=== PATIENT | male | born 1990 | race American Indian/Alaskan Native ===

== ENCOUNTER 2017-03-28 13:27 | Emergency (ER) | payer SELFPAY ==
[2017-03-28 13:32] VITALS: BP 111/67
== END 2017-03-28 17:50 | disposition home or self-care (01) ==
LOC: ED 13:27
DX: K08.89 Other specified disorders of teeth and supporting structures (principal); Z53.21 Procedure and treatment not carried out due to patient leaving prior to being seen by health care provider

== ENCOUNTER 2017-09-08 14:25 | Emergency (ER) | payer SELFPAY ==
[2017-09-08 14:33] VITALS: BP 118/76
[2017-09-08 14:50] LABS: Bilirubin,Urine NEG (Negative); Blood,Urine NEG (Negative); Color,Urine Yellow (Yellow); Mucus,Urine 1+ /HPF; Protein,Urine <15 mg/dL mg/dL (Negative); Urobilinogen,Urine < 2.0 mg/dL (<2.0)
[2017-09-08 14:58] LABS: Amphetamine Screen,Urine PRESUMPTIVE NEGATIVE; Benzodiazepines Screen,Urine PRESUMPTIVE NEGATIVE; Cocaine Screen,Urine PRESUMPTIVE NEGATIVE; Methadone Screen,Urine PRESUMPTIVE NEGATIVE; Opiate Screen,Urine PRESUMPTIVE NEGATIVE
[2017-09-08 15:05] LABS: Basophils % (Auto) 0.6 % (0.0-1.8); Eosinophils # (Auto) 0.3 K/mm3 (0.0-0.4); Eosinophils % (Auto) 8.8 % (0.0-4.3); Hematocrit 42.4 % (35.5-45.6); Hemoglobin 14.1 gm/dl (11.8-15.2); Lymphocytes # (Auto) 1.4 K/mm3 (1.2-5.4); Lymphocytes % (Auto) 36.3 % (13.4-35.0); Mean Corpuscular HGB Conc 33 % (32-34); Mean Corpuscular Hemoglobin 28 pg (28-32); Mean Corpuscular Volume 83 fl (84-94); Monocytes # (Auto) 0.3 K/mm3 (0.0-0.8); Monocytes % (Auto) 6.9 % (0.0-7.3); Platelet Count 203 K/mm3 (140-440); Red Cell Distribution Width 14.3 % (13.2-15.2)
[2017-09-08 15:20] LABS: Cannabinoid Screen,Urine PRESUMPTIVE POSITIVE
[2017-09-08 15:21] LABS: BUN/Creatinine Ratio 16; Blood Urea Nitrogen 16 mg/dL (9-20); Calcium 9.9 mg/dL (8.4-10.2); Hemolysis Index 4
--- NOTE | 2017-09-08 16:46 | Emergency Department Report ---
HPI - General Chief Complaint: Psych Time Seen by Provider: 09/08/17 16:14 - HPI HPI: 27-year-old male presents to the emergency department with complaint of some depression and anxiety that he says has been going on for about one year but appears somewhat worsened recently. The patient did lose his job about one week ago but says that the symptoms were going on prior to that. The patient has difficulty sleeping at night and says that his mind is always racing. He denies any visual or auditory hallucinations. He denies any suicidal or homicidal ideations. He denies any diagnosed medical or psychiatric conditions. Occasionally he will smoke marijuana but otherwise denies any other illicit drugs. He has not taken anything for his symptoms prior to presentation. ED Past Medical Hx - Past Medical History Previous Medical History?: No - Surgical History Past Surgical History?: No - Social History Smoking Status: Never Smoker Substance Use Type: Marijuana ED Review of Systems ROS: Stated complaint: SUICIDAL Other details as noted in HPI Comment: All other systems reviewed and negative Constitutional: denies: chills, fever Eyes: denies: eye pain, eye discharge, vision change ENT: denies: ear pain, throat pain Respiratory: denies: cough, shortness of breath, wheezing Cardiovascular: denies: chest pain, palpitations Gastrointestinal: denies: abdominal pain, nausea, diarrhea Genitourinary: denies: urgency, dysuria Musculoskeletal: denies: back pain, joint swelling, arthralgia Skin: denies: rash, lesions Neurological: denies: headache, weakness, paresthesias Psychiatric: anxiety, depression. denies: auditory hallucinations, visual hallucinations, homicidal thoughts, suicidal thoughts Physical Exam - Physical Exam Vital Signs: Vital Signs 09/08/17 14:31 Temperature 98.3 F Pulse Rate 63 Respiratory 16 Rate Blood Pressure 118/76 O2 Sat by Pulse 97 Oximetry Physical Exam: GENERAL: The patient is well-developed well-nourished. HENT: Normocephalic. Atraumatic. Patient has moist mucous membranes. EYES: Extraocular motions are intact. NECK: Supple. Trachea is midline. CHEST/LUNGS: Clear to auscultation. There is no respiratory distress noted. HEART/CARDIOVASCULAR: Regular. There is no tachycardia. There is no murmur. ABDOMEN: Abdomen is soft, nontender. Patient has normal bowel sounds. There is no abdominal distention. SKIN: Skin is warm and dry. NEURO: The patient is awake, alert, and oriented. The patient is cooperative. The patient has no focal neurologic deficits. The patient has normal speech. MUSCULOSKELETAL: There is no tenderness or deformity. There is no limitation range of motion. There is no evidence of acute injury. ED Course Vital Signs 09/08/17 14:31 Temperature 98.3 F Pulse Rate 63 Respiratory 16 Rate Blood Pressure 118/76 O2 Sat by Pulse 97 Oximetry ED Medical Decision Making - Lab Data Result diagrams: 09/08/17 14:46 09/08/17 14:46 - Medical Decision Making Patient presents with some acute on chronic symptoms of anxiety, depression and has some insomnia. Patient does not have any suicidal or homicidal ideations or any hallucinations. He is currently awake, calm and appropriate and has a normal decision making capacity. The patient does not appear to require or meet criteria to be made a 1013 for inpatient psychiatric treatment. He was seen by the psych assessment team who agrees and has given outpatient referrals. He has been encouraged to return to the emergency department with any thoughts of harming himself or others, worsening of his symptoms, or with any acute distress. We discussed some improvement of sleep habits to assist with his insomnia. - Differential Diagnosis anxiety, depression, bipolar disorder, schizoaffective Critical Care Time: No Critical care attestation.: If time is entered above; I have spent that time in minutes in the direct care of this critically ill patient, excluding procedure time. ED Disposition Clinical Impression: Anxiety Depression Qualifiers: Depression Type: unspecified Qualified Code(s): F32.9 - Major depressive disorder, single episode, unspecified Insomnia Qualifiers: Insomnia type: unspecified Qualified Code(s): G47.00 - Insomnia, unspecified Disposition: DC-01 TO HOME OR SELFCARE Is pt being admited?: No Condition: Stable Instructions: Depression (ED), Insomnia (ED), Anxiety (ED) Additional Instructions: Please follow up with one of the psychiatric referrals that you have been given for outpatient evaluation and treatment. Return to the emergency Department with any worsening of your symptoms, thoughts of harming yourself or others, or with any acute distress. Time of Disposition: 17:52
== END 2017-09-08 17:58 | disposition home or self-care (01) ==
LOC: ED 14:25
DX: F41.9 Anxiety disorder, unspecified (principal); G47.00 Insomnia, unspecified; F32.9 Major depressive disorder, single episode, unspecified; F12.10 Cannabis abuse, uncomplicated; Z79.899 Other long term (current) drug therapy
CPT/HCPCS: 36415; 80048; 80307; 81001; 85025; 99284; G0480; 80320